=== PATIENT | female | born 1950 | race Asian ===

== ENCOUNTER 2016-10-31 12:47 | Outpatient (CLI) | payer OTHER | END 2016-11-01 02:01 | disposition home or self-care (01) | LOC: MAMMO 12:47 | DX: Z12.31 Encounter for screening mammogram for malignant neoplasm of breast (principal) | CPT/HCPCS: G0202-TC ==

== ENCOUNTER 2017-11-06 09:23 | Outpatient (CLI) | payer OTHER ==
[2017-11-06 09:42] LABS: PLATELET COUNT 294 K/uL (152-353)
[2017-11-06 09:47] LABS: POTASSIUM 3.6 mmol/L (3.6-5.2)
== END 2017-11-06 19:19 | disposition home or self-care (01) ==
LOC: LABW 09:23
PROVIDERS: Specialist
DX: Z01.810 Encounter for preprocedural cardiovascular examination (principal); R93.1 Abnormal findings on diagnostic imaging of heart and coronary circulation
CPT/HCPCS: 36415; 80053; 85027

== ENCOUNTER 2017-11-29 11:36 | Outpatient (CLI) | payer OTHER | END 2017-11-29 18:12 | disposition home or self-care (01) | LOC: MAMMO 11:36 | DX: Z12.31 Encounter for screening mammogram for malignant neoplasm of breast (principal) ==

== ENCOUNTER 2018-06-19 19:35 | Emergency (ER) | payer OTHER ==
[~2018-06-19] VITALS: Ht 157.5 cm; Wt 80.7 kg
[2018-06-19 20:42] LABS: PLATELET COUNT 277 K/uL (152-353)
[2018-06-19 20:49] LABS: POTASSIUM 3.1 mmol/L (3.6-5.2)
[2018-06-19] MEDS ORDERED: COZAAR100 MG PO (21:51)
[2018-06-19] MEDS ORDERED: HYDR25TA60 PO (21:51)
[2018-06-19] MEDS ORDERED: ASPIRIN LOW81 MG PO (21:52)
[2018-06-19] MEDS ORDERED: LABETALOL300 MG PO (21:53)
[2018-06-19] MEDS ORDERED: GABA300C2 PO (21:53)
[2018-06-19] MEDS ORDERED: MOBIC15 MG PO (21:53)
[2018-06-19] MEDS ORDERED: CYCL10TA35 PO (21:54)
[2018-06-19] MEDS ORDERED: LIPITOR40 MG PO (21:54)
[2018-06-19] MEDS ORDERED: APPLE CIDE1 PO (21:55)
[2018-06-19 22:31] VITALS: BP 163/95; TEMP 97.9
== END 2018-06-19 22:24 | disposition home or self-care (01) ==
LOC: ED 19:35
PROVIDERS: Internal Medicine
DX: R42 Dizziness and giddiness (principal); I10 Essential (primary) hypertension; E87.6 Hypokalemia; D64.89 Other specified anemias; N92.4 Excessive bleeding in the premenopausal period
CPT/HCPCS: 80053; 85027; 99283

== ENCOUNTER 2018-12-03 09:01 | Outpatient (CLI) | payer OTHER ==
[~2018-12-03 09:01] MED LIST: APPLE CIDE1 PO; ASPIRIN LOW81 MG PO; COZAAR100 MG PO; CYCL10TA35 PO; GABA300C2 PO; HYDR25TA60 PO; LABETALOL300 MG PO; LIPITOR40 MG PO; MOBIC15 MG PO
== END 2018-12-03 23:26 | disposition home or self-care (01) ==
LOC: MAMMO 09:01
DX: Z12.31 Encounter for screening mammogram for malignant neoplasm of breast (principal)

== ENCOUNTER 2019-03-01 11:03 | Outpatient (CLI) | payer OTHER | END 2019-03-01 19:09 | disposition home or self-care (01) | LOC: RAD 11:03 | DX: M25.461 Effusion, right knee (principal) ==

== ENCOUNTER 2020-06-09 09:38 | Outpatient (CLI) | payer OTHER | END 2020-06-10 00:36 | disposition home or self-care (01) | LOC: RAD 09:38 | DX: M25.551 Pain in right hip (principal); M54.5 Low back pain ==

== ENCOUNTER 2022-02-17 11:18 | Outpatient (CLI) | payer OTHER | END 2022-02-17 19:16 | disposition home or self-care (01) | LOC: RAD 11:18 | PROVIDERS: ATTEND Nurse Practitioner Primary Care | DX: M25.551 Pain in right hip (principal); M25.511 Pain in right shoulder; M25.561 Pain in right knee ==

== ENCOUNTER 2022-02-22 16:43 | Outpatient (CLI) | payer OTHER | END 2022-02-22 20:16 | disposition home or self-care (01) | LOC: RAD 16:43 | PROVIDERS: ATTEND Nurse Practitioner Primary Care | DX: M79.602 Pain in left arm (principal); M54.6 Pain in thoracic spine ==

== ENCOUNTER 2022-03-14 09:39 | Outpatient (CLI) | payer OTHER | END 2022-03-14 19:00 | disposition home or self-care (01) | LOC: RAD 09:39 | PROVIDERS: ATTEND Nurse Practitioner Primary Care | DX: M25.511 Pain in right shoulder (principal); M25.561 Pain in right knee; M54.6 Pain in thoracic spine ==

== ENCOUNTER 2022-04-15 08:37 | Outpatient (CLI) | payer OTHER | END 2022-04-15 18:55 | disposition home or self-care (01) | LOC: MAMMO 08:37 | PROVIDERS: ATTEND Nurse Practitioner Primary Care | DX: Z12.31 Encounter for screening mammogram for malignant neoplasm of breast (principal) ==

== ENCOUNTER 2022-05-30 22:31 | Emergency (ER) | payer OTHER ==
[~2022-05-30] VITALS: Ht 157.5 cm; Wt 82.1 kg
[2022-05-30 23:40] LABS: PLATELET COUNT 300 K/uL (152-353)
[2022-05-30 23:55] LABS: POTASSIUM 3.2 mmol/L (3.6-5.2)
[2022-05-31 02:50] VITALS: BP 124/88; TEMP 97.9
== END 2022-05-31 02:50 | disposition home or self-care (01) ==
LOC: ED 22:31
PROVIDERS: Emergency Medicine Emergency Medical Services
DX: R07.89 Other chest pain (principal); E87.6 Hypokalemia
CPT/HCPCS: 36415; 80053; 84484; 85027; 85610; 93005; 96360; 99284

== ENCOUNTER 2022-06-01 08:43 | Outpatient (CLI) | payer OTHER | END 2022-06-01 23:21 | disposition home or self-care (01) | LOC: RAD 08:43 | PROVIDERS: ATTEND Family Medicine | DX: M81.8 Other osteoporosis without current pathological fracture (principal) ==

== ENCOUNTER 2022-06-10 12:49 | Outpatient (CLI) | payer OTHER ==
[2022-06-10 13:47] LABS: POTASSIUM 3.3 mmol/L (3.6-5.2)
[2022-06-10 13:52] LABS: PLATELET COUNT 301 K/uL (152-353)
== END 2022-06-10 19:05 | disposition home or self-care (01) ==
LOC: LABW 12:49
PROVIDERS: ATTEND Specialist
DX: R94.39 Abnormal result of other cardiovascular function study (principal)
CPT/HCPCS: 36415; 80048; 85027

== ENCOUNTER 2022-08-24 12:54 | Inpatient (IN) | payer OTHER ==
[~2022-08-24] VITALS: Ht 157.5 cm; Wt 69.4 kg
[~2022-08-24 12:54] MED LIST changes: +AMBIEN5 MG PO; +ASPIRIN 8181 MG PO; +BENZONATATE100 MG PO; +CLOP75TA2 PO; +FAMOTIDINE20 MG PO; +ISOS30TA17 PO; +LABETALOL200 MG PO; +LOSA50TA PO; +NITR0.4S2 SL; +PANTOPRAZOLE 40MG TA PO; +PEPCID40 MG PO; +PROAIR HFA108 MCG/AC INH; +ZITHROMAX500 MG PO
[2022-08-24 13:00] VITALS: BP 134/73
[2022-08-24 14:04] LABS: PLATELET COUNT 275 K/uL (152-353)
[2022-08-24 14:13] LABS: POTASSIUM 4.5 mmol/L (3.6-5.2)
[2022-08-24 16:04] VITALS: BP 122/79
[2022-08-24 17:52] VITALS: BP 144/81; TEMP 99.4; Ht 157.5 cm; Wt 69.4 kg
[2022-08-24 19:45] VITALS: BP 106/77; TEMP 98.9
[2022-08-25 00:16] VITALS: BP 110/69; TEMP 99.3
[2022-08-25 04:41] VITALS: BP 117/72; TEMP 99.4
[2022-08-25 08:00] VITALS: BP 108/51; BP 124/65; TEMP 98.8; TEMP 99.6
[2022-08-25 12:00] VITALS: BP 141/92; TEMP 100.3
[2022-08-25 16:00] VITALS: BP 134/83; TEMP 100.4
[2022-08-25 20:00] VITALS: BP 127/79; TEMP 99.7
[2022-08-26] VITALS (7 sets, daily range): BP systolic 106–146; BP diastolic 66–83; TEMP 98.9–99.3
[2022-08-26 03:38] LABS: PLATELET COUNT 262 K/uL (152-353)
[2022-08-26 03:51] LABS: POTASSIUM 3.4 mmol/L (3.6-5.2)
[2022-08-27 03:47] VITALS: BP 146/70; TEMP 99.4
[2022-08-27 08:00] VITALS: BP 141/90; TEMP 98.9
[2022-08-27 12:00] VITALS: BP 147/86; TEMP 98.3
[2022-08-27 16:00] VITALS: BP 143/84; TEMP 99
[2022-08-27 19:41] VITALS: BP 129/68; TEMP 98.5
[2022-08-28] VITALS (7 sets, daily range): BP systolic 119–144; BP diastolic 59–87; TEMP 98.6–99.1
[2022-08-28 05:37] LABS: PLATELET COUNT 290 K/uL (152-353)
[2022-08-28 05:45] LABS: POTASSIUM 3.6 mmol/L (3.6-5.2)
[2022-08-29 03:32] VITALS: BP 106/69; TEMP 98.9
[2022-08-29 07:15] VITALS: BP 147/93; TEMP 99.3
[2022-08-29 12:00] VITALS: BP 148/92; TEMP 99.2
[2022-08-29 16:00] VITALS: BP 136/98; TEMP 99.2
[2022-08-29 19:57] VITALS: BP 189/76; TEMP 97.8
[2022-08-30 00:07] VITALS: BP 157/88; TEMP 98.7
[2022-08-30 04:00] VITALS: BP 159/85; TEMP 98.4
[2022-08-30 08:00] VITALS: BP 174/99; TEMP 99.6
[2022-08-30] MEDS ORDERED: CLOT10TR2 MT (08:50)
[2022-08-30] MEDS ORDERED: CEFD300C2 PO (10:24)
== END 2022-08-30 11:06 | DRG 177 ==
LOC: ED 12:54 → MED/SURG 17:00
PROVIDERS: Emergency Medicine Emergency Medical Services; Internal Medicine Endocrinology, Diabetes & Metabolism; ADMIT Internal Medicine; ATTEND Internal Medicine
DX: U07.1 COVID-19 (principal); G92.8 Other toxic encephalopathy; J12.82 Pneumonia due to coronavirus disease 2019; J15.0 Pneumonia due to Klebsiella pneumoniae; I10 Essential (primary) hypertension; R26.89 Other abnormalities of gait and mobility; R54 Age-related physical debility; K21.9 Gastro-esophageal reflux disease without esophagitis; Z86.73 Personal history of transient ischemic attack (TIA), and cerebral infarction without residual deficits; E78.49 Other hyperlipidemia; G62.89 Other specified polyneuropathies; R41.0 Disorientation, unspecified
CPT/HCPCS: 36415; 80048; 80053; 81002; 82805; 83735; 84484; 85027; 87040; 87070; 87077; 87186; 87205; 87635; 94760; 96360; 96361; 96365; 99284; J0248; J0456; J0696; U0003

== ENCOUNTER 2023-04-17 08:30 | Outpatient (CLI) | payer OTHER ==
[~2023-04-17 08:30] MED LIST changes: +CEFD300C2 PO; +CLOT10TR2 MT
== END 2023-04-17 19:30 | disposition home or self-care (01) ==
LOC: MAMMO 08:30
PROVIDERS: ATTEND Nurse Practitioner Family
DX: Z12.31 Encounter for screening mammogram for malignant neoplasm of breast (principal)